=== PATIENT | male | born 1975 | race Hispanic/Latino ===

== ENCOUNTER 2019-06-08 19:14 | Emergency (ER) | payer BC ==
[~2019-06-08] VITALS: Ht 177.8 cm; Wt 96.2 kg
[2019-06-08 20:23] VITALS: BP 139/81; TEMP 97.9
== END 2019-06-08 20:24 | disposition home or self-care (01) ==
LOC: ED 19:14
DX: S46.912A Strain of unspecified muscle, fascia and tendon at shoulder and upper arm level, left arm, initial encounter (principal); V86.95XA Unspecified occupant of 3- or 4- wheeled all-terrain vehicle (ATV) injured in nontraffic accident, initial encounter
CPT/HCPCS: 96372; 99282; 99283; J1885

== ENCOUNTER 2021-02-17 08:47 | Outpatient (CLI) | payer BC | END 2021-02-17 20:34 | disposition home or self-care (01) | LOC: US 08:47 | PROVIDERS: ATTEND Nurse Practitioner Family | DX: E78.5 Hyperlipidemia, unspecified (principal); R74.8 Abnormal levels of other serum enzymes ==